=== PATIENT | male | born 1975 | race American Indian/Alaskan Native ===

== ENCOUNTER 2022-08-01 17:48 | Emergency (ER) | payer MEDICARE, MEDICAID ==
[~2022-08-01] VITALS: Ht 180.3 cm; Wt 159.0 kg
[2022-08-01 17:59] VITALS: BP 139/77
[2022-08-01 19:40] LABS: Urine Bacteria NONE SEEN /hpf (None Seen); Urine WBC <1 /hpf (0 - 3)
[2022-08-01 19:45] LABS: Basophils # (auto) 0.1 10 ^3/uL (0-0.2); Basophils % (auto) 0.6 % (0.0-2.0); Eosinophils # (auto) 0.2 10 ^3/uL (0-0.8); Eosinophils % (auto) 1.5 % (0.0-7.0); Hematocrit 47.9 % (41.0-53.0); Hemoglobin 16.3 g/dL (13.5-17.5); Lymphocytes # (auto) 1.9 10 ^3/uL (0.4-5.4); Lymphocytes % (auto) 17.2 % (10.0-50.0); Mean Corpuscular Hemoglobin 29.9 pg (28.0-32.0); Mean Corpuscular Hgb Conc. 34.1 g/dL (32.0-36.0); Mean Corpuscular Volume 87.6 fL (80.0-100.0); Monocytes # (auto) 0.7 10 ^3/uL (0-1.3); Monocytes % (auto) 6.9 % (0.0-12.0); Neutrophils % (auto) 73.8 % (37.0-80.0); Red Blood Cells 5.46 10^6/uL (4.5-5.90); Red Cell Distribution Width 14.2 % (11.8-14.3); White Blood Cell 10.8 10^3/uL (4.4-10.8)
[2022-08-01 19:54] LABS: Urine Specific Gravity 1.005 (1.001-1.035)
[2022-08-01 19:55] LABS: Urine Blood Negative /uL (Negative)
[2022-08-01 20:11] LABS: Calcium 8.8 mg/dL (8.5-10.1); Potassium 3.5 mmol/L (3.5-5.1)
[2022-08-01 20:17] LABS: Albumin 3.8 g/dL (3.4-5.0); BUN/Creatinine Ratio 10.2; Bilirubin, Total 0.8 mg/dL (0.2-1.0); Total Protein 7.6 g/dL (6.4-8.2)
[2022-08-01] MEDS ORDERED: traMADol HCL 50 MG TAB PO ONE (20:45)
== END 2022-08-01 20:58 | disposition home or self-care (01) ==
LOC: ER 17:48
DX: R10.9 Unspecified abdominal pain (principal); R30.0 Dysuria; I42.9 Cardiomyopathy, unspecified; E11.9 Type 2 diabetes mellitus without complications; Z88.8 Allergy status to other drugs, medicaments and biological substances
CPT/HCPCS: 36415; 74176; 80053; 81001; 83605; 85025